=== PATIENT | female | born 1975 | race Caucasian/White ===

== ENCOUNTER → 2024-02-17 08:26 | Outpatient (CLI) | payer BC, SELFPAY ==
--- NOTE | 2024-02-17 08:30 | DI.US.S_ITS ---
PROCEDURE: US PELVIC COMPLETE INDICATIONS: IUD CHECK UP TECHNIQUE: Real-time scanning was performed of the pelvic organs, with image documentation. Additional endovaginal scanning was necessary due to incomplete visualization of the adnexal and endometrial structures by transabdominal scanning. COMPARISON: None. FINDINGS: Uterus: 9 x 5 x 5 centimeters. IUD is low lying at the lower uterine segment, left arm appears to extend into the myometrium. Endometrium overall measures 4-5 millimeters. Overall homogeneous echotexture. Ovaries: Left follicular cyst measures 2.5 centimeters. Prominent left ovary at 12 cc overall. Possible small hemorrhagic cyst in the right ovary measuring 1.8 centimeters, overall right ovarian volume is 5 cc. Other: No pathologic free fluid. IMPRESSION: Low lying IUD, with the left arm appearing to extend into the myometrium. Unremarkable, likely physiologic appearance of the ovaries described above. Approved by: George Birmingham M.D. on 02/17/2024 at 9:13
== END ==
PROVIDERS: PCP Nurse Practitioner Family; Referring Provider Nurse Practitioner Family; Visit Provider Nurse Practitioner Family
DX: Z30.431 Encounter for routine checking of intrauterine contraceptive device (principal); N83.02 Follicular cyst of left ovary; N83.201 Unspecified ovarian cyst, right side
CPT/HCPCS: 76830; 76856